=== PATIENT | male | born 1940 | race Caucasian/White ===

== ENCOUNTER → 2016-04-22 | Outpatient (CLI) | payer OTHER ==
[~2016-04-22] MED LIST: AMLODIPINE BESYL5 MG PO; ASPIR 8181 MG PO; ATIVAN0.5 MG PO; BUSPIRONE HCL15 MG PO; HYDROCHLOROTHIA25 MG PO; IPRAT-ALBUT 0.5-3 ML INH; LEVAQUIN750 MG PO; LOTENSIN TAB 1010 MG PO; NORCO 5-325 TA1 EACH PO; NORVASC 5 MG TAB5 MG PO; REQUIP0.25 MG PO; RILUTEK50 MG PO; ROXANOL SOLN20 MG/ML PO; TESSALON PERLE100 MG PO; VISTARIL25 MG PO; ZOCOR 40 MG TAB40 MG PO
== END ==
DX: J84.112 Idiopathic pulmonary fibrosis (principal); J98.4 Other disorders of lung; R91.8 Other nonspecific abnormal finding of lung field; I71.2 Thoracic aortic aneurysm, without rupture
CPT/HCPCS: 71250

== ENCOUNTER 2016-05-14 17:25 | Emergency (ER) | payer OTHER ==
[~2016-05-14 17:25] MED LIST changes: -AMLODIPINE BESYL5 MG PO; -ATIVAN0.5 MG PO; -BUSPIRONE HCL15 MG PO; -REQUIP0.25 MG PO; -RILUTEK50 MG PO; -ROXANOL SOLN20 MG/ML PO; -VISTARIL25 MG PO
== END 2016-05-14 21:00 | disposition home or self-care (01) ==
LOC: ER1 17:25
DX: S43.102A Unspecified dislocation of left acromioclavicular joint, initial encounter (principal); V87.8XXA Person injured in other specified noncollision transport accidents involving motor vehicle (traffic), initial encounter
CPT/HCPCS: 73030; 96372; 99283; J2270; J2550

== ENCOUNTER 2016-06-26 10:14 | Inpatient (IN) | payer OTHER ==
[~2016-06-26] VITALS: Ht 175.3 cm; Wt 65.3 kg
[2016-06-26 11:02] LABS: HEMOGLOBIN 14.9 gm/dl (14.0-17.5); RED BLOOD COUNT 4.79 M/UL (4.20-5.50); WHITE BLOOD COUNT 10.2 K/UL (4.5-11.0)
[2016-06-26 11:27] LABS: BUN/CREATININE RATIO 24 (0-10)
[2016-06-26] MEDS ORDERED: ATIVAN0.5 MG PO (14:43)
[2016-06-26] MEDS ORDERED: BUSPIRONE HCL15 MG PO (14:43)
[2016-06-26] MEDS ORDERED: REQUIP0.25 MG PO (14:44)
[2016-06-26] MEDS ORDERED: RILUTEK50 MG PO (14:44)
[2016-06-26] MEDS ORDERED: AMLODIPINE BESYL5 MG PO (14:46)
[2016-06-26] MEDS ORDERED: HYDROCHLOROTHIA25 MG PO (14:47)
[2016-06-27 05:15] LABS: RED BLOOD COUNT 4.6 M/UL (4.20-5.50); WHITE BLOOD COUNT 9.9 K/UL (4.5-11.0)
[2016-06-27 05:33] LABS: BUN/CREATININE RATIO 29 (0-10)
[2016-06-28 05:01] LABS: HEMOGLOBIN 14.6 gm/dl (14.0-17.5); RED BLOOD COUNT 4.75 M/UL (4.20-5.50)
[2016-06-28 05:27] LABS: BUN/CREATININE RATIO 29 (0-10)
[2016-06-29 03:42] LABS: HEMOGLOBIN 14.1 gm/dl (14.0-17.5); RED BLOOD COUNT 4.52 M/UL (4.20-5.50); WHITE BLOOD COUNT 8.5 K/UL (4.5-11.0)
[2016-06-29 03:56] LABS: BUN/CREATININE RATIO 31 (0-10)
[2016-06-30] MEDS ORDERED: VISTARIL25 MG PO (11:05)
[2016-06-30] MEDS ORDERED: ROXANOL SOLN20 MG/ML PO (11:18)
== END 2016-06-30 14:55 | DRG 189 ==
LOC: ER1 10:14 → ZEROF 13:45 → PROG CARE 13:45
PROVIDERS: Family Medicine; Physician Assistant; ADMIT Family Medicine
PROC: 5A09357 Assistance with Respiratory Ventilation, Less than 24 Consecutive Hours, Continuous Positive Airway Pressure (ICD-10-PCS; principal; 2016-06-26)
PROC: 5A09357 Assistance with Respiratory Ventilation, Less than 24 Consecutive Hours, Continuous Positive Airway Pressure (ICD-10-PCS; 2016-06-27)
DX: J96.02 Acute respiratory failure with hypercapnia (principal); G12.21 Amyotrophic lateral sclerosis; J96.01 Acute respiratory failure with hypoxia; J84.112 Idiopathic pulmonary fibrosis; I12.9 Hypertensive chronic kidney disease with stage 1 through stage 4 chronic kidney disease, or unspecified chronic kidney disease; N18.2 Chronic kidney disease, stage 2 (mild); I25.10 Atherosclerotic heart disease of native coronary artery without angina pectoris; E78.5 Hyperlipidemia, unspecified; C61 Malignant neoplasm of prostate; R25.3 Fasciculation; M21.371 Foot drop, right foot; Z51.5 Encounter for palliative care; Z66 Do not resuscitate; F41.9 Anxiety disorder, unspecified; Z95.1 Presence of aortocoronary bypass graft; Z95.5 Presence of coronary angioplasty implant and graft; Z99.3 Dependence on wheelchair; Z99.81 Dependence on supplemental oxygen; Z79.82 Long term (current) use of aspirin; Z79.899 Other long term (current) drug therapy; Z98.890 Other specified postprocedural states; Z80.1 Family history of malignant neoplasm of trachea, bronchus and lung; Z80.42 Family history of malignant neoplasm of prostate; Z82.49 Family history of ischemic heart disease and other diseases of the circulatory system; Z83.6 Family history of other diseases of the respiratory system
CPT/HCPCS: 36415; 36600; 71010; 74230; 80048; 80053; 82550; 82553; 82803; 83874; 83880; 84484; 85025; 85027; 92611-GN; 93005; 94660; 99285; J1650; J2060; J2270; Q0177